=== PATIENT | female | born 2005 | race Caucasian/White ===

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

== ENCOUNTER → 2024-07-10 | Outpatient (CLI) | payer OTHER ==
[~2024-07-10] MED LIST changes: +ONDA4ODT MM
== END ==
LOC: LAB 16:47 → LAB SHORT 16:47
DX: O09.93 Supervision of high risk pregnancy, unspecified, third trimester (principal)
CPT/HCPCS: 87081; 87150

== ENCOUNTER 2024-07-29 18:55 | Inpatient (IN) | payer OTHER ==
[~2024-07-29] VITALS: Ht 160 cm; Wt 75.5 kg
[2024-07-29] MEDS ORDERED: OXYTOCIN/RINGER'S LACTATE 500 ML IV PRN (19:55)
[2024-07-29] MEDS ORDERED: Misoprostol 25 MCG Tab VAG PRN (19:55)
[2024-07-29] MEDS ORDERED: Misoprostol 200 MCG Tab BC PRN (19:55)
[2024-07-29] MEDS ORDERED: Methylergonovine Maleate 0.2MG / ML 1ML Amp IM PRN (19:55)
[2024-07-29] MEDS ORDERED: OXYTOCIN/RINGER'S LACTATE 500 ML IV SCH (19:55)
[2024-07-29] MEDS ORDERED: FentaNYL 2mcg/ml-Bup 0.1% Epd 250 ML EPI PRN (19:55)
[2024-07-29] MEDS ORDERED: Misoprostol 200 MCG Tab PR PRN (19:55)
[2024-07-29] MEDS ORDERED: Carboprost Tromethamine 250 MCG/ML 1ML Amp IM PRN (19:55)
[2024-07-29] MEDS ORDERED: Oxytocin 10 Unit / ML Vial IM PRN (19:55)
[2024-07-29] MEDS ORDERED: Lactated Ringer's 1,000 ML IV PRN ×5 (19:55→20:00)
[2024-07-29] MEDS ORDERED: Penicillin G Potassium 5,000,000 UNITS in NS 250 ML IV ONE (19:55)
[2024-07-29] MEDS ORDERED: ePHEDrine Sulfate 50 MG/ML 1ML Injection XX PRN (19:55)
[2024-07-29] MEDS ORDERED: Acetaminophen 500 MG Tab PO PRN (20:05)
[2024-07-29] MEDS ORDERED: FentaNYL Citrate 50 MCG/ML 2 ML Injection IV PRN (20:05)
[2024-07-29] MEDS ORDERED: Calcium Carbonate 500 MG Tab Chew PO PRN (20:05)
[2024-07-29] MEDS ORDERED: Ondansetron HCl 2 MG / ML 2ML Vial IV PRN (20:05)
[2024-07-29 20:25] LABS: BASOPHILS ABSOLUTE AUTO 0.03 K/mm3 (0.00-0.23); BASOPHILS PERCENT AUTO 0 % (0-2); EOSINOPHILS ABSOLUTE AUTO 0.07 K/mm3 (0.00-0.68); EOSINOPHILS PERCENT AUTO 1 % (0-6); Hemoglobin 9.5 g/dL (11.5-16.0); IMMATURE GRAN ABSOLUTE AUTO 0.03 K/mm3 (0.00-0.10); IMMATURE GRAN PERCENT AUTO 0 % (0-1); LYMPHOCYTES ABSOLUTE AUTO 1.59 K/mm3 (0.84-5.20); LYMPHOCYTES PERCENT AUTO 17 % (21-46); MONOCYTES ABSOLUTE AUTO 0.63 K/mm3 (0.16-1.47); MONOCYTES PERCENT AUTO 7 % (4-13); Mean Corpuscular HGB 28.3 pg (26.0-34.0); Mean Corpuscular HGB Conc 33.9 g/dL (31.5-36.5); Mean Corpuscular Volume 83 fL (80-100); Mean Platelet Volume 11.8 fL (9.1-12.4); NEUTROPHILS ABSOLUTE AUTO 6.97 K/mm3 (1.96-9.15); NEUTROPHILS PERCENT AUTO 75 % (41-73); Platelet Count 212 K/mm3 (150-400); RDW Coefficient Variation 14.2 % (11.7-14.2); Red Blood Cell Count 3.36 M/mm3 (3.80-5.20); White Blood Cell Count 9.32 K/mm3 (4.00-11.30)
[2024-07-29] MEDS ORDERED: Tranexamic Acid 100 ML IV PRN (20:25)
[2024-07-29 20:34] VITALS: BP 134/78
[2024-07-29 20:58] VITALS: BP 140/87
[2024-07-29 21:12] VITALS: BP 123/69
[2024-07-29 21:27] VITALS: BP 126/78
[2024-07-29 21:42] VITALS: BP 128/78
[2024-07-30] VITALS (47 sets, daily range): BP systolic 102–171; BP diastolic 59–117
[2024-07-30] MEDS ORDERED: Penicillin G Potassium 2,500,000 UNITS in Dextrose 5% 100 ML IV SCH (00:30)
[2024-07-30] MEDS ORDERED: Misoprostol 100 MCG Tab PO PRN (15:10)
[2024-07-30] MEDS ORDERED: Witch Hazel/Glycerin PADS TOP PRN (15:15)
[2024-07-30] MEDS ORDERED: Methylergonovine Maleate 0.2MG / ML 1ML Amp IM PRN (15:15)
[2024-07-30] MEDS ORDERED: Lactated Ringer's 1,000 ML IV SCH (15:15)
[2024-07-30] MEDS ORDERED: Ibuprofen 400 MG Tab PO PRN (15:15)
[2024-07-30] MEDS ORDERED: Measles/Mumps/Rubella Vaccine 0.5 ML Vial SC SCH (15:15)
[2024-07-30] MEDS ORDERED: Docusate Sodium 100 MG Cap PO PRN (15:20)
[2024-07-30] MEDS ORDERED: Benzocaine Topical Anesthetic Spray 60GM TOP PRN (15:20)
[2024-07-30] MEDS ORDERED: OXYTOCIN/RINGER'S LACTATE 500 ML IV SCH (15:20)
[2024-07-30] MEDS ORDERED: FLU VACC TS2024-25(6MOS UP)/PF 45 MCG/0.5 ML SYRINGE IM SCH (15:20)
[2024-07-30] MEDS ORDERED: Lanolin Cream TOP PRN (15:20)
[2024-07-30] MEDS ORDERED: Acetaminophen 325 MG TABLET PO PRN (15:20)
[2024-07-30] MEDS ORDERED: Tranexamic Acid 100 ML IV PRN (15:30)
[2024-07-30] MEDS ORDERED: Ketorolac Tromethamine 30mg Vial IV SCH (18:00)
[2024-07-31 00:17] VITALS: BP 115/63
[2024-07-31 04:02] VITALS: BP 122/65
[2024-07-31 05:46] LABS: BASOPHILS ABSOLUTE AUTO 0.03 K/mm3 (0.00-0.23); BASOPHILS PERCENT AUTO 0 % (0-2); EOSINOPHILS ABSOLUTE AUTO 0.18 K/mm3 (0.00-0.68); EOSINOPHILS PERCENT AUTO 2 % (0-6); Hematocrit 25.9 % (33.0-51.0); Hemoglobin 8.6 g/dL (11.5-16.0); IMMATURE GRAN ABSOLUTE AUTO 0.02 K/mm3 (0.00-0.10); IMMATURE GRAN PERCENT AUTO 0 % (0-1); LYMPHOCYTES ABSOLUTE AUTO 2.52 K/mm3 (0.84-5.20); LYMPHOCYTES PERCENT AUTO 25 % (21-46); MONOCYTES ABSOLUTE AUTO 0.85 K/mm3 (0.16-1.47); MONOCYTES PERCENT AUTO 9 % (4-13); Mean Corpuscular HGB 28.3 pg (26.0-34.0); Mean Corpuscular HGB Conc 33.2 g/dL (31.5-36.5); Mean Corpuscular Volume 85 fL (80-100); Mean Platelet Volume 11.7 fL (9.1-12.4); NEUTROPHILS ABSOLUTE AUTO 6.31 K/mm3 (1.96-9.15); NEUTROPHILS PERCENT AUTO 64 % (41-73); Platelet Count 188 K/mm3 (150-400); RDW Coefficient Variation 14.4 % (11.7-14.2); RDW Standard Deviation 44.3 fL (35.1-46.3); Red Blood Cell Count 3.04 M/mm3 (3.80-5.20); White Blood Cell Count 9.91 K/mm3 (4.00-11.30)
[2024-07-31 07:37] VITALS: BP 119/73
[2024-07-31] MEDS ORDERED: Prenatal Vit/FE Fumarate/FA 1 Tab PO SCH (09:00)
[2024-07-31 12:59] VITALS: BP 111/59
--- NOTE | 2024-07-31 16:58 | NUR ---
DISCHARGE TEACHING COMPLETED, REVIEWED WRITTEN INSTRUCTIONS AND FOLLOW UP APPOINTMENTS, QUESTIONS ANSWERED
[2024-07-31 17:08] VITALS: BP 127/80
== END 2024-07-31 17:50 | disposition home or self-care (01) | DRG 807 ==
LOC: OBS 18:55 → BC 18:55 → OBS 19:24 → BC 19:25
PROVIDERS: Obstetrics & Gynecology; ADMIT Obstetrics & Gynecology
PROC: 3E0P7VZ Introduction of Hormone into Female Reproductive, Via Natural or Artificial Opening (ICD-10-PCS; 2024-07-29)
PROC: 3E033VJ Introduction of Other Hormone into Peripheral Vein, Percutaneous Approach (ICD-10-PCS; 2024-07-29)
PROC: 10E0XZZ Delivery of Products of Conception, External Approach (ICD-10-PCS; principal; 2024-07-30)
PROC: 10907ZC Drainage of Amniotic Fluid, Therapeutic from Products of Conception, Via Natural or Artificial Opening (ICD-10-PCS; 2024-07-30)
PROC: 3E0234Z Introduction of Serum, Toxoid and Vaccine into Muscle, Percutaneous Approach (ICD-10-PCS; 2024-07-31)
DX: O99.824 Streptococcus B carrier state complicating childbirth (principal); Z37.0 Single live birth; Z3A.39 39 weeks gestation of pregnancy; O70.0 First degree perineal laceration during delivery; O99.344 Other mental disorders complicating childbirth; F41.8 Other specified anxiety disorders; O99.334 Smoking (tobacco) complicating childbirth; F17.210 Nicotine dependence, cigarettes, uncomplicated; O99.324 Drug use complicating childbirth; F12.90 Cannabis use, unspecified, uncomplicated; O99.52 Diseases of the respiratory system complicating childbirth; J45.909 Unspecified asthma, uncomplicated; O99.02 Anemia complicating childbirth; O99.62 Diseases of the digestive system complicating childbirth; K21.9 Gastro-esophageal reflux disease without esophagitis; O36.5930 Maternal care for other known or suspected poor fetal growth, third trimester, not applicable or unspecified; Z71.6 Tobacco abuse counseling; Z71.51 Drug abuse counseling and surveillance of drug abuser; Z78.9 Other specified health status; Z23 Encounter for immunization
CPT/HCPCS: 36415; 51702; 85025; 86850; 86900; 86901; 86923; 90707; A9270; J1885; J2405; J2540; J2590; J3010; J7050; J7120

== ENCOUNTER → 2024-09-17 | Outpatient (CLI) | payer OTHER ==
[2024-09-18 11:10] LABS: Bacterial Vaginosis PCR Negative (NEGATIVE); Candida Group, PCR NOT DETECTED (NOT DETECT); Candida glabrata-krusei, PCR NOT DETECTED (NOT DETECT)
== END ==
LOC: LAB 17:15 → LAB SHORT 17:15
PROVIDERS: Obstetrics & Gynecology
DX: N89.8 Other specified noninflammatory disorders of vagina (principal)
CPT/HCPCS: 87481; 87661; 87801

== ENCOUNTER 2024-09-29 01:06 | Emergency (ER) | payer OTHER ==
[~2024-09-29] VITALS: Ht 160 cm; Wt 64.0 kg
[2024-09-29 01:56] VITALS: BP 130/62
[2024-09-29 02:51] LABS: Influenza B, PCR NEGATIVE (NEGATIVE); Resp Syncytial Virus, PCR NEGATIVE (NEGATIVE); SARS-Cov-2 (COVID-19) PCR, MMC NEGATIVE (NEGATIVE)
[2024-09-29 05:46] LABS: Influenza A, PCR POSITIVE (NEGATIVE)
== END 2024-09-29 06:45 | disposition home or self-care (01) ==
LOC: ER 01:06
PROVIDERS: Emergency Medicine
DX: J10.1 Influenza due to other identified influenza virus with other respiratory manifestations (principal); Z88.8 Allergy status to other drugs, medicaments and biological substances
CPT/HCPCS: 0241U; 99283

== ENCOUNTER → 2024-10-12 | Outpatient (CLI) | payer OTHER | LOC: LAB 09:53 → LAB SHORT 09:53 | DX: R30.0 Dysuria (principal) | CPT/HCPCS: 87086 ==

== ENCOUNTER 2025-07-18 06:37 | Emergency (ER) | payer OTHER ==
[~2025-07-18] VITALS: Ht 160 cm; Wt 61.2 kg
[2025-07-18] MEDS ORDERED: PROAIR RESPICL90 MCG IH (06:58)
[2025-07-18] MEDS ORDERED: Ipratropium/Albuterol SulF 2.5-0.5MG/3 ML Amp INH ONE (07:05)
[2025-07-18] MEDS ORDERED: NS 1,000 ML IV SCH (07:05)
[2025-07-18] MEDS ORDERED: Ondansetron HCl 2 MG / ML 2ML Vial IV ONE (07:50)
[2025-07-18 08:06] LABS: BASOPHILS ABSOLUTE AUTO 0.06 K/mm3 (0.00-0.23); BASOPHILS PERCENT AUTO 1 % (0-2); EOSINOPHILS ABSOLUTE AUTO 0.81 K/mm3 (0.00-0.68); EOSINOPHILS PERCENT AUTO 8 % (0-6); Hematocrit 45.5 % (33.0-51.0); Hemoglobin 15.1 g/dL (11.5-16.0); IMMATURE GRAN ABSOLUTE AUTO 0.02 K/mm3 (0.00-0.10); IMMATURE GRAN PERCENT AUTO 0 % (0-1); LYMPHOCYTES ABSOLUTE AUTO 1.15 K/mm3 (0.84-5.20); LYMPHOCYTES PERCENT AUTO 11 % (21-46); MONOCYTES ABSOLUTE AUTO 0.66 K/mm3 (0.16-1.47); MONOCYTES PERCENT AUTO 6 % (4-13); Mean Corpuscular HGB Conc 33.2 g/dL (31.5-36.5); Mean Corpuscular Volume 89 fL (80-100); NEUTROPHILS ABSOLUTE AUTO 7.95 K/mm3 (1.96-9.15); NEUTROPHILS PERCENT AUTO 75 % (41-73); NRBC ABSOLUTE 0.00 K/mm3 (0.00-0.02); NRBC Auto 0.0 /100 WBC (0.0-0.2); Platelet Count 205 K/mm3 (150-400); RDW Coefficient Variation 13.5 % (11.7-14.2); RDW Standard Deviation 44.0 fL (35.1-46.3)
[2025-07-18 08:20] LABS: Anion Gap 12.0 mmol/L (3-11); Blood Urea Nitrogen 9.0 mg/dL (8-24); CO2, Blood 23.0 mmol/L (21-32); Calcium, Blood 9.6 mg/dL (8.5-10.1); Chloride, Blood 108.0 mmol/L (98-108); Creatinine, Blood 0.6 mg/dL (0.40-1.00); Glucose, Blood 114.0 mg/dL (70-99); Potassium, Blood 3.5 mmol/L (3.5-5.5); Sodium, Blood 139.0 mmol/L (136-145)
[2025-07-18 08:44] LABS: Influenza A, PCR NEGATIVE (NEGATIVE); Influenza B, PCR NEGATIVE (NEGATIVE); Resp Syncytial Virus, PCR NEGATIVE (NEGATIVE); SARS-Cov-2 (COVID-19) PCR, MMC NEGATIVE (NEGATIVE)
[2025-07-18 10:14] VITALS: BP 119/59
[2025-07-18] MEDS ORDERED: ALBU90OI INH (10:41)
[2025-07-18] MEDS ORDERED: PRED20 PO (10:41)
== END 2025-07-18 11:03 | disposition home or self-care (01) ==
LOC: ER 06:37
PROVIDERS: Student in an Organized Health Care Education/Training Program
DX: J45.901 Unspecified asthma with (acute) exacerbation (principal); J06.9 Acute upper respiratory infection, unspecified; F17.290 Nicotine dependence, other tobacco product, uncomplicated; Z88.8 Allergy status to other drugs, medicaments and biological substances; Z79.899 Other long term (current) drug therapy
CPT/HCPCS: 71046; 80048; 85025; 87637; 93005; 93010; 96374; 96375; 99285-25; J2405; J2919; J7030

== ENCOUNTER 2025-09-03 02:13 | Emergency (ER) | payer OTHER ==
[~2025-09-03] VITALS: Ht 157.5 cm; Wt 61.2 kg
[~2025-09-03 02:13] MED LIST changes: +PRED20 PO; +PROAIR RESPICL90 MCG IH
[2025-09-03 02:21] VITALS: BP 135/85
== END 2025-09-03 03:28 | disposition home or self-care (01) ==
LOC: ER 02:13
DX: S61.512A Laceration without foreign body of left wrist, initial encounter (principal); W01.10XA Fall on same level from slipping, tripping and stumbling with subsequent striking against unspecified object, initial encounter; Y92.096 Garden or yard of other non-institutional residence as the place of occurrence of the external cause; Z79.899 Other long term (current) drug therapy; Z88.8 Allergy status to other drugs, medicaments and biological substances; J45.909 Unspecified asthma, uncomplicated; F17.290 Nicotine dependence, other tobacco product, uncomplicated
CPT/HCPCS: 12001; 99282-25